=== PATIENT | male | born 1965 | race Caucasian/White ===

== ENCOUNTER 2019-03-26 14:11 | Emergency (ER) | payer MEDICAID ==
[~2019-03-26] VITALS: Ht 170.2 cm; Wt 86.2 kg
[2019-03-26] MEDS ORDERED: methylPREDNISolone SOD SUCC 125 MG/2 ML VL IM ONE (19:15)
[2019-03-26] MEDS ORDERED: KETOROLAC TROMETH 60MG/2ML VIAL IM ONE (19:15)
[2019-03-26] MEDS ORDERED: BACLOFEN 10 MG TAB PO ONE (19:45)
[2019-03-26] MEDS ORDERED: HYDROcodone-ACET 5/325MG TAB PO ONE (19:45)
[2019-03-26 20:30] VITALS: BP 105/63
[2019-03-26] MEDS ORDERED: MORPHINE SULF INJ 2 MG/ML SYRINGE 1ML IM ONE (20:30)
== END 2019-03-26 21:51 | disposition home or self-care (01) ==
LOC: ER 14:11
DX: M53.3 Sacrococcygeal disorders, not elsewhere classified (principal); M54.42 Lumbago with sciatica, left side; I10 Essential (primary) hypertension
CPT/HCPCS: 72100; 96372; 99283; J1885; J2270; J2930